=== PATIENT | male | born 1955 | race African-American/Black ===

== ENCOUNTER 2022-05-11 18:55 | Inpatient (IN) | payer OTHER ==
[2022-05-11 19:45] VITALS: BMI 29.5
[2022-05-12] MEDS ORDERED: MAG HYDROX/AL HYDROX/SIMETH 30 ML UNIT-DOSE CUP PO PRN (00:24)
[2022-05-12] MEDS ORDERED: guaiFENesin 200 MG/10 ML 10 ML UNIT-DOSE CUPS PO PRN (00:24)
[2022-05-12] MEDS ORDERED: MAGNESIUM HYDROX 2400MG/30ML ORAL SUSPENSION 30 ML CUP PO PRN (00:24)
[2022-05-12] MEDS ORDERED: IBUPROFEN 400 MG TABLET (FP) PO PRN (00:24)
[2022-05-12] MEDS ORDERED: BENZOCAINE/MENTHOL (CHLORASEPTIC ) LOZENGE MM PRN (00:24)
[2022-05-12] MEDS ORDERED: P-EPHED 60MG/TRIPROLIDI 2.5MG TABLET PO PRN (00:24)
[2022-05-12] MEDS ORDERED: POLYETHYLENE GLYCOL (HEALTHYLAX) 3350 17 GM PACKET PO PRN (00:24)
[2022-05-12] MEDS ORDERED: LOPERAMIDE HCL 2 MG CAPSULE PO PRN (00:24)
[2022-05-12] MEDS ORDERED: cloNIDine HCL 0.1 MG TABLET PO ONE ×4 (00:28→09:45)
[2022-05-12] MEDS ORDERED: TUBERCULIN PPD 5 TU/0.1ML VIAL ID ONE ×2 (03:59→04:18)
[2022-05-12] MEDS ORDERED: BUPRENORPHINE HCL 150 MCG, BUPRENORPHINE HCL 75 MCG BC PRN (09:18)
[2022-05-12] MEDS ORDERED: BUPRENORPHINE HCL 150 MCG, BUPRENORPHINE HCL 75 MCG BC ONE (09:45)
[2022-05-12] MEDS: PRENATAL VITAMINS W/ FOLIC ACID TABLET (FP) PO SCH (10:36)
[2022-05-12 14:34] LABS: HEMOGLOBIN 15.4 GM/dL (11.7-16.9); MCH 29.4 pg (25.7-33.7); MCHC 33.4 g/dl (32.0-35.9); MEAN PLT VOLUME 10.1 fl (7.5-11.1); PLATELET COUNT 222 10^3/uL (134-434); RBC 5.23 M/mm3 (4.00-5.60); RDW 13.8 % (11.9-15.9); WHITE BLOOD COUNT 7.9 K/mm3 (4.0-10.0)
[2022-05-12 14:44] LABS: EPI CELLS 7 /uL (0-25.1); HYALINE CASTS 3 /uL (0-3.1); URINE APPEARANCE CLEAR; URINE BACTERIA 2 /uL (0-1359); URINE BILIRUBIN NEGATIVE (NEGATIVE); URINE COLOR YELLOW; URINE GLUCOSE (UA) 3+ (NEGATIVE); URINE KETONE 2+ (NEGATIVE); URINE LEUK ESTERASE NEGATIVE (NEGATIVE); URINE NITRITE NEGATIVE (NEGATIVE); URINE PROTEIN 2+ (NEGATIVE); URINE RBC 3 /uL (0-23.9); URINE UROBILINOGEN 0.2 mg/dL (0.2-1.0); URINE WBC 5 /uL (0-25.8)
[2022-05-12 15:32] LABS: CALCIUM 9.6 mg/dL (8.5-10.1)
[2022-05-12 15:33] LABS: ALBUMIN 3.9 g/dl (3.4-5.0)
[2022-05-12 15:37] LABS: TOT PROT 6.9 g/dl (6.4-8.2)
[2022-05-12 15:38] LABS: BILIRUBIN,TOTAL 0.7 mg/dL (0.2-1)
[2022-05-12] MEDS: cloNIDine HCL 0.1 MG TABLET PO PRN (19:23)
[2022-05-12] MEDS: LISINOPRIL 5 MG TABLET PO SCH (19:54)
[2022-05-12] MEDS: MELATONIN 5 MG TABLETS PO SCH (21:39)
[2022-05-12] MEDS: THIAMINE HCL 100 MG TABLET (FP) PO SCH (21:40)
[2022-05-12] MEDS: INSULIN SLIDING SCALE (NOVOLOG) 1 VIAL SQ SCH (21:41)
[2022-05-13] MEDS ORDERED: BUPRENORPHINE HCL 150 MCG, BUPRENORPHINE HCL 75 MCG BC PRN
[2022-05-13] MEDS: cloNIDine HCL 0.1 MG TABLET PO PRN ×3 (02:00→14:53)
[2022-05-13] MEDS: ACETAMINOPHEN 325 MG TABLET (FP) PO PRN ×2 (02:01→08:51)
[2022-05-13] MEDS: INSULIN SLIDING SCALE (NOVOLOG) 1 VIAL SQ SCH ×4 (06:03→21:52)
[2022-05-13] MEDS: BUPRENORPHINE HCL 150 MCG, BUPRENORPHINE HCL 75 MCG BC SCH ×2 (06:05→17:46)
[2022-05-13] MEDS: diazePAM 5 MG TABLET PO PRN ×2 (08:49→15:00)
[2022-05-13] MEDS: PRENATAL VITAMINS W/ FOLIC ACID TABLET (FP) PO SCH (09:00)
[2022-05-13] MEDS: LISINOPRIL 5 MG TABLET PO SCH (09:01)
[2022-05-13 10:42] LABS: BLOOD UREA NITROGEN 27.3 mg/dL (7-18); CALCIUM 9.9 mg/dL (8.5-10.1); CREATININE 1.1 mg/dL (0.55-1.3)
[2022-05-13] MEDS: ONDANSETRON 4 MG TABLET PO PRN (13:02)
[2022-05-13] MEDS ORDERED: TRIMETHOBENZAMIDE HCL 200MG/2ML INJ IM ONE (14:22)
[2022-05-13] MEDS: THIAMINE HCL 100 MG TABLET (FP) PO SCH (21:48)
[2022-05-13] MEDS: MELATONIN 5 MG TABLETS PO SCH (21:48)
[2022-05-14] MEDS: cloNIDine HCL 0.1 MG TABLET PO PRN ×3 (02:09→22:18)
[2022-05-14] MEDS: diazePAM 5 MG TABLET PO PRN ×2 (02:09→08:52)
[2022-05-14] MEDS ORDERED: BUPRENORPHINE HCL 450 MCG FILM BC SCH (06:00)
[2022-05-14] MEDS: INSULIN SLIDING SCALE (NOVOLOG) 1 VIAL SQ SCH ×5 (07:57→22:26)
[2022-05-14] MEDS: ONDANSETRON 4 MG TABLET PO PRN (08:52)
[2022-05-14] MEDS: LISINOPRIL 5 MG TABLET PO SCH (09:01)
[2022-05-14] MEDS: PRENATAL VITAMINS W/ FOLIC ACID TABLET (FP) PO SCH (09:01)
[2022-05-14] MEDS ORDERED: methaDONE HCL 10 MG TABLET PO ONE (09:28)
[2022-05-14] MEDS: amLODIPine BESYLATE 5 MG TABLET (FP) PO SCH (10:03)
[2022-05-14] MEDS: THIAMINE HCL 100 MG TABLET (FP) PO SCH (22:22)
[2022-05-14] MEDS: MELATONIN 5 MG TABLETS PO SCH (22:22)
[2022-05-15] MEDS ORDERED: BUPRENORPHINE/NALOXONE 4 MG/1 MG FILM PACKET SL SCH (06:00)
[2022-05-15] MEDS: INSULIN SLIDING SCALE (NOVOLOG) 1 VIAL SQ SCH ×4 (06:47→22:32)
[2022-05-15 10:13] VITALS: RESP 18
[2022-05-15] MEDS: PRENATAL VITAMINS W/ FOLIC ACID TABLET (FP) PO SCH (10:23)
[2022-05-15] MEDS: amLODIPine BESYLATE 5 MG TABLET (FP) PO SCH (10:23)
[2022-05-15] MEDS: LISINOPRIL 5 MG TABLET PO SCH (10:23)
[2022-05-15] MEDS: cloNIDine HCL 0.1 MG TABLET PO PRN (10:34)
[2022-05-15] MEDS ORDERED: methaDONE HCL 10 MG TABLET PO ONE (11:58)
[2022-05-15] MEDS ORDERED: ONDANSETRON *ODT* 4 MG TABLET SL PRN (15:55)
[2022-05-15] MEDS: MELATONIN 5 MG TABLETS PO SCH (22:03)
[2022-05-15] MEDS: THIAMINE HCL 100 MG TABLET (FP) PO SCH (22:03)
[2022-05-16] MEDS ORDERED: BUPRENORPHINE/NALOXONE 8 MG/2 MG FILM PACKET SL ONE (06:00)
[2022-05-16] MEDS: INSULIN SLIDING SCALE (NOVOLOG) 1 VIAL SQ SCH ×2 (06:02→11:32)
[2022-05-16 06:42] VITALS: TEMP 98.4
[2022-05-16] MEDS ORDERED: hydrOXYzine PAMOATE 25 MG CAPSULE (FP) PO PRN (09:21)
[2022-05-16] MEDS: PRENATAL VITAMINS W/ FOLIC ACID TABLET (FP) PO SCH (09:28)
[2022-05-16] MEDS: amLODIPine BESYLATE 5 MG TABLET (FP) PO SCH (09:28)
[2022-05-16] MEDS: LISINOPRIL 5 MG TABLET PO SCH (09:29)
[2022-05-16] MEDS ORDERED: methaDONE HCL 40 MG DISPERSABLE TABLET PO SCH (09:30)
[2022-05-16 15:57] VITALS: BP 129/85; PULSE 88
== END 2022-05-16 16:45 | disposition left against medical advice (07) | DRG 894 ==
LOC: YASAS 18:55 → Y3W 05-12 02:51
PROVIDERS: ADMIT Allergy & Immunology; ATTEND Allergy & Immunology
PROC: HZ42ZZZ Group Counseling for Substance Abuse Treatment, Cognitive-Behavioral (ICD-10-PCS; principal; 2022-05-12)
DX: F11.20 Opioid dependence, uncomplicated (principal); F14.20 Cocaine dependence, uncomplicated; H54.62 Unqualified visual loss, left eye, normal vision right eye; I10 Essential (primary) hypertension; E55.9 Vitamin D deficiency, unspecified; E11.9 Type 2 diabetes mellitus without complications; Z79.84 Long term (current) use of oral hypoglycemic drugs; Z87.891 Personal history of nicotine dependence
CPT/HCPCS: 36415; 80048; 80053; 81003; 82962; 85027; 86780; 93005; 93010; C9803-CS; Q0162; U0003; U0005